=== PATIENT | female | born 2000 | race Caucasian/White ===

== ENCOUNTER → 2023-12-13 12:39 | Outpatient (REF) | payer OTHER, SELFPAY | LOC: HWRAD 12:39 | PROVIDERS: ATTENDING PHYSICIAN Physician Assistant Medical | DX: M25.511 Pain in right shoulder (principal) | CPT/HCPCS: 73030 ==

== ENCOUNTER → 2024-07-28 08:07 | Outpatient (REF) | payer OTHER, SELFPAY | LOC: HWRAD 08:07 | PROVIDERS: ATTENDING PHYSICIAN Physician Assistant Medical | DX: R35.0 Frequency of micturition (principal) | CPT/HCPCS: 76770 ==